=== PATIENT | female | born 1990 | race African-American/Black ===

== ENCOUNTER 2016-09-03 04:41 | Emergency (ER) | payer BC, MEDICAID ==
[2016-09-03] MEDS ORDERED: DEXAMETHASONE 4 MG/ML VIAL ONE (04:58)
[2016-09-03] MEDS ORDERED: DIPHENHYDRAMINE 50 MG/ML VIAL ONE (04:58)
== END 2016-09-03 06:39 | disposition home or self-care (01) ==
LOC: ER 04:41
CPT/HCPCS: 87880; 96374; 96375